=== PATIENT | male | born 1955 | race Caucasian/White ===

== ENCOUNTER 2019-08-04 07:55 | Outpatient (CLI) | payer MEDICARE, SELFPAY ==
[2019-08-04 13:10] LABS: Basophils Percent Auto 0.3 % (0.2-1.2); Eosinophils Absolute Auto 0.3 K/mm3 (0-0.3); Eosinophils Percent Auto 4.1 % (0-4.4); Hematocrit 45.2 % (42.0-52.0); Hemoglobin 14.2 g/dL (14.0-18.0); Immature Granulocyte Absolute 0.03 K/mm3 (0.00-0.031); Immature Granulocyte Percent A 0.4 % (0-0.5); Lymphocytes Absolute Auto 1.56 K/mm3 (0.9-3.2); Lymphocytes Percent Auto 21.1 % (18.3-44.2); Mean Corpuscular HGB Conc 31.4 g/dl (32-36); Mean Corpuscular Hemoglobin 27.7 pg (26-34); Mean Corpuscular Volume 88.3 fl (80-100); Mean Platelet Volume 12.2 fl (7.4-10.4); Monocytes Absolute Auto 0.7 K/mm3 (0.1-0.6); Monocytes Percent Auto 9.9 % (2.6-8.5); Neutrophils Absolute Auto 4.8 K/mm3 (1.3-6.7); Neutrophils Percent Auto 64.2 % (45.5-73.1); Platelet Count Result 203 k/mm3 (150-375); Red Blood Count 5.12 M/mm3 (4.6-6.20); Red Cell Distribution Width 14.9 % (11.5-14.5); White Blood Count 7.4 K/mm3 (4.5-10.0)
[2019-08-04 13:16] LABS: Alanine Aminotransferase 18 U/L (4-50); Albumin Level 4.8 g/dL (3.5-5.1); Alkaline Phosphatase 106 U/L (38-126); Aspartate Amino Transferase 20 U/L (17-59); Bilirubin,Total 0.7 mg/dL (0.2-1.3); Blood Urea Nitrogen 26 mg/dL (9-20); Calcium 10.1 mg/dL (8.4-10.2); Carbon Dioxide 23 mmol/L (22-30); Chloride 96 mmol/L (98-107); Cholesterol 149 mg/dL (0-200); Estimated Glomerular Filt Rate > 60; Glucose 116 mg/dL (75-110); HDL Direct 42 mg/dL; Potassium 4.2 mmol/L (3.4-5.0); Sodium 137 mmol/L (137-145); Triglycerides 222 mg/dL (<150); Uric Acid 3.7 mg/dL (3.5-8.5)
[2019-08-04 13:27] LABS: LDL Cholesterol Direct 82 mg/dL
[2019-08-04 13:31] LABS: Free T4 Free Thyroxine 1.08 ng/mL (0.78-2.19); Vitamin D 25 Hydroxy 45.1 ng/mL
[2019-08-04 13:33] LABS: Creatinine Urine 126.3 mg/dL
[2019-08-04 13:37] LABS: MALB Creatinine Ratio 7.4 mg/g (0-30); Microalbumin Urine Random 9.4 mg/L (0-16.7)
[2019-08-04 13:45] LABS: Total Triiodothyronine (T3) 1.39 NG/ML (0.97-1.69)
== END 2019-08-04 07:56 | disposition home or self-care (01) ==
LOC: ANHWCLAB 08:01
PROVIDERS: PCP Family Medicine; Visit Provider Family Medicine
DX: Z13.220 Encounter for screening for lipoid disorders (principal); Z13.29 Encounter for screening for other suspected endocrine disorder; Z13.0 Encounter for screening for diseases of the blood and blood-forming organs and certain disorders involving the immune mechanism; Z13.6 Encounter for screening for cardiovascular disorders; Z12.5 Encounter for screening for malignant neoplasm of prostate; I12.9 Hypertensive chronic kidney disease with stage 1 through stage 4 chronic kidney disease, or unspecified chronic kidney disease; N18.3 Chronic kidney disease, stage 3 (moderate); E55.9 Vitamin D deficiency, unspecified; I48.0 Paroxysmal atrial fibrillation; D50.9 Iron deficiency anemia, unspecified; R80.9 Proteinuria, unspecified
CPT/HCPCS: 36415; 80053; 80061; 82043; 82306; 84153; 84439; 84443; 84480; 84550; 85025; G0103

== ENCOUNTER 2020-01-04 08:59 | Outpatient (CLI) | payer MEDICARE, SELFPAY ==
[2020-01-04 09:32] LABS: Hemoglobin A1C 6.5 % (<5.7)
[2020-01-04 12:49] LABS: Folic Acid 13.9 ng/mL (2.76->20)
== END 2020-01-04 09:00 | disposition home or self-care (01) ==
PROVIDERS: PCP Family Medicine; Visit Provider Nurse Practitioner
DX: R20.2 Paresthesia of skin (principal); R73.01 Impaired fasting glucose; D51.3 Other dietary vitamin B12 deficiency anemia
CPT/HCPCS: 36415; 82607; 82746; 83036

== ENCOUNTER 2020-06-18 08:57 | Outpatient (CLI) | payer MEDICARE, SELFPAY ==
[2020-06-24 11:56] LABS: Testosterone Free 58.7 pg/mL (35.0-155.0); Testosterone Total 438 ng/dL (250-1100)
== END 2020-06-18 08:58 | disposition home or self-care (01) ==
PROVIDERS: PCP Family Medicine; Visit Provider Nurse Practitioner
DX: N52.9 Male erectile dysfunction, unspecified (principal)
CPT/HCPCS: 36415; 84402; 84403

== ENCOUNTER 2020-10-15 09:28 | Outpatient (CLI) | payer MEDICARE, SELFPAY | END 2020-10-15 09:29 | disposition home or self-care (01) | LOC: ANHAUDIO 09:29 | PROVIDERS: PCP Family Medicine; Visit Provider Family Medicine | DX: H90.3 Sensorineural hearing loss, bilateral (principal) | CPT/HCPCS: 92557; 92567 ==

== ENCOUNTER 2020-10-18 06:44 | Outpatient (CLI) | payer MEDICARE, SELFPAY ==
[2020-10-18 07:29] LABS: Basophils Percent Auto 0.3 % (0.2-1.2); Eosinophils Absolute Auto 0.1 K/mm3 (0-0.3); Eosinophils Percent Auto 1.3 % (0-4.4); Hematocrit 45.8 % (42.0-52.0); Hemoglobin 15.1 g/dL (14.0-18.0); Immature Granulocyte Absolute 0.03 K/mm3 (0.00-0.031); Immature Granulocyte Percent A 0.5 % (0-0.5); Immature Reticulocyte Fraction 16.2 % (3.0-15.9); Lymphocytes Absolute Auto 1.29 K/mm3 (0.9-3.2); Lymphocytes Percent Auto 20.8 % (18.3-44.2); Mean Corpuscular Hemoglobin 28.7 pg (26-34); Mean Corpuscular Volume 86.9 fl (80-100); Mean Platelet Volume 10.8 fl (7.4-10.4); Monocytes Percent Auto 16.1 % (2.6-8.5); Neutrophils Absolute Auto 3.8 K/mm3 (1.3-6.7); Platelet Count Result 187 k/mm3 (150-375); Red Blood Count 5.27 M/mm3 (4.6-6.20); Red Cell Distribution Width 14.2 % (11.5-14.5); Reticulocyte Hemoglobin Conten 34.4 pg (28.2-35.7); Reticulocyte Percent 1.84 % (0.7-4.3); White Blood Count 6.2 K/mm3 (4.5-10.0)
[2020-10-18 07:41] LABS: Alanine Aminotransferase 20 U/L (4-50); Albumin Level 4.6 g/dL (3.5-5.1); Alkaline Phosphatase 85 U/L (38-126); Anion Gap 9 mmol/L (8-16); Aspartate Amino Transferase 23 U/L (17-59); Bilirubin,Total 0.7 mg/dL (0.2-1.3); Blood Urea Nitrogen 26 mg/dL (9-20); Calcium 9.6 mg/dL (8.4-10.2); Carbon Dioxide 27 mmol/L (22-30); Chloride 99 mmol/L (98-107); Cholesterol 133 mg/dL (0-200); Estimated Glomerular Filt Rate > 60; Glucose 125 mg/dL (75-110); HDL Direct 41 mg/dL; Potassium 4.3 mmol/L (3.4-5.0); Sodium 135 mmol/L (137-145); Triglycerides 146 mg/dL (<150); Uric Acid 3.5 mg/dL (3.5-8.5)
[2020-10-18 07:52] LABS: LDL Cholesterol Direct 69 mg/dL; Transferrin 243 mg/dL (206-381)
[2020-10-18 08:12] LABS: Prostate Specific Antigen 2.7 ng/mL (< OR = 4.0); Total Triiodothyronine (T3) 1.12 NG/ML (0.97-1.69)
[2020-10-18 08:28] LABS: Creatinine Urine 130.9 mg/dL
[2020-10-18 08:32] LABS: MALB Creatinine Ratio 20.5 mg/g (0-30); Microalbumin Urine Random 26.8 mg/L (0-16.7)
[2020-10-18 08:46] LABS: Folic Acid 11.8 ng/mL (2.76->20)
[2020-10-18 09:11] LABS: Vitamin D 25 Hydroxy 48.7 ng/mL
[2020-10-18 09:57] LABS: Lactate Dehydrogenase < 200 U/L (313-618)
[2020-10-18 10:39] LABS: Iron 71 ug/dL (49-181)
[2020-10-18 10:41] LABS: Percent Iron Saturation 22 % (20-50)
== END 2020-10-18 06:45 | disposition home or self-care (01) ==
PROVIDERS: PCP Family Medicine; Visit Provider Nurse Practitioner Family
DX: E11.40 Type 2 diabetes mellitus with diabetic neuropathy, unspecified (principal); D51.3 Other dietary vitamin B12 deficiency anemia; E78.2 Mixed hyperlipidemia; E55.9 Vitamin D deficiency, unspecified; M10.09 Idiopathic gout, multiple sites; I12.9 Hypertensive chronic kidney disease with stage 1 through stage 4 chronic kidney disease, or unspecified chronic kidney disease; D50.9 Iron deficiency anemia, unspecified; N18.30 Chronic kidney disease, stage 3 unspecified; Z12.5 Encounter for screening for malignant neoplasm of prostate
CPT/HCPCS: 36415; 80053; 80061; 82043; 82306; 82607; 82728; 82746; 83540; 83550; 83615; 84153; 84439; 84443; 84466; 84480; 84550; 85025; 85046; G0103

== ENCOUNTER 2021-05-22 07:19 | Outpatient (CLI) | payer MEDICARE, SELFPAY ==
[2021-05-22 07:50] LABS: Basophils Percent Auto 0.3 % (0.2-1.2); Eosinophils Absolute Auto 0.1 K/mm3 (0-0.3); Eosinophils Percent Auto 2.3 % (0-4.4); Hematocrit 43.1 % (42.0-52.0); Hemoglobin 14.3 g/dL (14.0-18.0); Immature Granulocyte Absolute 0.04 K/mm3 (0.00-0.031); Immature Granulocyte Percent A 0.7 % (0-0.5); Lymphocytes Absolute Auto 1.46 K/mm3 (0.9-3.2); Lymphocytes Percent Auto 23.9 % (18.3-44.2); Mean Corpuscular HGB Conc 33.2 g/dl (32-36); Mean Corpuscular Hemoglobin 29.3 pg (26-34); Mean Corpuscular Volume 88.3 fl (80-100); Mean Platelet Volume 10.8 fl (7.4-10.4); Monocytes Absolute Auto 0.8 K/mm3 (0.1-0.6); Neutrophils Absolute Auto 3.7 K/mm3 (1.3-6.7); Neutrophils Percent Auto 59.8 % (45.5-73.1); Platelet Count Result 198 k/mm3 (150-375); Red Blood Count 4.88 M/mm3 (4.6-6.20); Red Cell Distribution Width 13.6 % (11.5-14.5); White Blood Count 6.1 K/mm3 (4.5-10.0)
[2021-05-22 08:02] LABS: Alanine Aminotransferase 17 U/L (4-50); Albumin Level 4.7 g/dL (3.5-5.1); Alkaline Phosphatase 74 U/L (38-126); Anion Gap 11 mmol/L (8-16); Aspartate Amino Transferase 23 U/L (17-59); Bilirubin,Total 0.8 mg/dL (0.2-1.3); Blood Urea Nitrogen 27 mg/dL (9-20); Calcium 9.8 mg/dL (8.4-10.2); Carbon Dioxide 25 mmol/L (22-30); Chloride 95 mmol/L (98-107); Cholesterol 143 mg/dL (0-200); Estimated Glomerular Filt Rate > 60; Glucose 128 mg/dL (65-110); HDL Direct 40 mg/dL; Potassium 3.9 mmol/L (3.4-5.0); Sodium 131 mmol/L (137-145); Triglycerides 134 mg/dL (<150); Uric Acid 3.2 mg/dL (3.5-8.5)
[2021-05-22 08:13] LABS: LDL Cholesterol Direct 73 mg/dL
[2021-05-22 08:26] LABS: Free T4 Free Thyroxine 1.07 ng/mL (0.78-2.19); Vitamin D 25 Hydroxy 55.1 ng/mL
[2021-05-22 08:33] LABS: Total Triiodothyronine (T3) 1.32 NG/ML (0.97-1.69)
[2021-05-22 08:52] LABS: Creatinine Urine 190.8 mg/dL
[2021-05-22 08:58] LABS: MALB Creatinine Ratio 12.1 mg/g (0-30)
== END 2021-05-22 07:20 | disposition home or self-care (01) ==
PROVIDERS: PCP Family Medicine; Visit Provider Nurse Practitioner Family
DX: E55.9 Vitamin D deficiency, unspecified (principal); R80.9 Proteinuria, unspecified; Z13.29 Encounter for screening for other suspected endocrine disorder; Z13.220 Encounter for screening for lipoid disorders; Z13.6 Encounter for screening for cardiovascular disorders; Z13.0 Encounter for screening for diseases of the blood and blood-forming organs and certain disorders involving the immune mechanism; I12.9 Hypertensive chronic kidney disease with stage 1 through stage 4 chronic kidney disease, or unspecified chronic kidney disease; N18.9 Chronic kidney disease, unspecified
CPT/HCPCS: 36415; 80053; 80061; 82043; 82306; 84439; 84443; 84480; 84550; 85025

== ENCOUNTER 2023-02-25 08:12 | Outpatient (CLI) | payer MEDICARE, SELFPAY ==
[2023-02-25 09:05] LABS: Basophils Percent Auto 0.2 % (0.2-1.2); Eosinophils Absolute Auto 0.1 K/mm3 (0-0.3); Hematocrit 43.3 % (42.0-52.0); Hemoglobin 13.9 g/dL (14.0-18.0); Immature Granulocyte Absolute 0.03 K/mm3 (0.00-0.031); Immature Granulocyte Percent A 0.5 % (0-0.5); Lymphocytes Absolute Auto 1.42 K/mm3 (0.9-3.2); Lymphocytes Percent Auto 23.2 % (18.3-44.2); Mean Corpuscular HGB Conc 32.1 g/dl (32-36); Mean Corpuscular Volume 87.1 fl (80-100); Mean Platelet Volume 12.2 fl (7.4-10.4); Monocytes Absolute Auto 0.6 K/mm3 (0.1-0.6); Monocytes Percent Auto 9.6 % (2.6-8.5); Neutrophils Percent Auto 64.5 % (45.5-73.1); Platelet Count Result 172 k/mm3 (150-375); Red Blood Count 4.97 M/mm3 (4.6-6.20); Red Cell Distribution Width 13.7 % (11.5-14.5); White Blood Count 6.1 K/mm3 (4.5-10.0)
[2023-02-25 09:28] LABS: LDL Cholesterol Direct 76 mg/dL
[2023-02-25 09:33] LABS: Alanine Aminotransferase 30 U/L (6-50); Albumin Level 4.4 g/dL (3.5-5.1); Alkaline Phosphatase 68 U/L (38-126); Anion Gap 9 mmol/L (8-16); Aspartate Amino Transferase 26 U/L (17-59); Blood Urea Nitrogen 19 mg/dL (9-20); Calcium 9.2 mg/dL (8.4-10.2); Carbon Dioxide 28 mmol/L (22-30); Chloride 95 mmol/L (98-107); Cholesterol 136 mg/dL (0-200); Estimated Glomerular Filt Rate > 60; Glucose 119 mg/dL (65-110); HDL Direct 36 mg/dL; Sodium 132 mmol/L (137-145); Triglycerides 104 mg/dL (<150)
[2023-02-25 09:48] LABS: Prostate Specific Antigen 3.1 ng/mL (< OR = 4.0); Total Triiodothyronine (T3) 1.21 NG/ML (0.97-1.69)
[2023-02-25 09:59] LABS: Free T4 Free Thyroxine 1.18 ng/mL (0.78-2.19)
[2023-02-25 10:01] LABS: MALB Creatinine Ratio < 9.5 mg/g (0-30); Microalbumin Urine Random < 6.0 mg/L (0-16.7)
[2023-02-25 10:09] LABS: Hemoglobin A1C 5.9 % (<5.7)
[2023-02-28 16:48] LABS: Testosterone Free 47.7 pg/mL (35.0-155.0); Testosterone Total 302 ng/dL (250-1100)
== END 2023-02-25 08:13 | disposition home or self-care (01) ==
PROVIDERS: PCP Family Medicine; Visit Provider Nurse Practitioner Adult Health
DX: E78.5 Hyperlipidemia, unspecified (principal); I10 Essential (primary) hypertension; R73.01 Impaired fasting glucose; R53.1 Weakness; R53.83 Other fatigue; Z12.5 Encounter for screening for malignant neoplasm of prostate
CPT/HCPCS: 36415; 80053; 80061; 82043; 83036; 84153; 84402; 84403; 84439; 84443; 84480; 85025; G0103

== ENCOUNTER 2023-03-06 10:38 | Outpatient (CLI) | payer MEDICARE, SELFPAY | END 2023-03-06 10:39 | disposition home or self-care (01) | PROVIDERS: PCP Family Medicine; Visit Provider Nurse Practitioner Adult Health | DX: Z12.5 Encounter for screening for malignant neoplasm of prostate (principal) | CPT/HCPCS: 36415; 84153; G0103 ==

== ENCOUNTER 2023-06-18 08:22 | Outpatient (CLI) | payer MEDICARE, SELFPAY | END 2023-06-18 08:23 | disposition home or self-care (01) | LOC: ANHAUDIO 08:22 | PROVIDERS: PCP Family Medicine; Visit Provider Otolaryngology | DX: H66.90 Otitis media, unspecified, unspecified ear (principal); H90.2 Conductive hearing loss, unspecified; H92.09 Otalgia, unspecified ear; H90.3 Sensorineural hearing loss, bilateral | CPT/HCPCS: 92557; 92567 ==

== ENCOUNTER 2023-08-17 07:41 | Outpatient (CLI) | payer MEDICARE, SELFPAY ==
[2023-08-17 08:26] LABS: Basophils Percent Auto 0.3 % (0.2-1.2); Eosinophils Absolute Auto 0.1 K/mm3 (0-0.3); Hematocrit 44.8 % (42.0-52.0); Hemoglobin 14.3 g/dL (14.0-18.0); Immature Granulocyte Absolute 0.06 K/mm3 (0.00-0.031); Immature Granulocyte Percent A 0.9 % (0-0.5); Lymphocytes Absolute Auto 1.37 K/mm3 (0.9-3.2); Lymphocytes Percent Auto 20.5 % (18.3-44.2); Mean Corpuscular HGB Conc 31.9 g/dl (32-36); Mean Corpuscular Hemoglobin 28.1 pg (26-34); Mean Corpuscular Volume 88.2 fl (80-100); Mean Platelet Volume 11.6 fl (7.4-10.4); Monocytes Absolute Auto 0.7 K/mm3 (0.1-0.6); Monocytes Percent Auto 10.3 % (2.6-8.5); Neutrophils Absolute Auto 4.5 K/mm3 (1.3-6.7); Platelet Count Result 204 k/mm3 (150-375); Red Blood Count 5.08 M/mm3 (4.6-6.20); Red Cell Distribution Width 14.4 % (11.5-14.5); White Blood Count 6.7 K/mm3 (4.5-10.0)
[2023-08-17 08:36] LABS: Alanine Aminotransferase 18 U/L (6-50); Alkaline Phosphatase 64 U/L (38-126); Anion Gap 3 mmol/L (8-16); Aspartate Amino Transferase 22 U/L (17-59); Bilirubin,Total 1.2 mg/dL (0.2-1.3); Blood Urea Nitrogen 16 mg/dL (9-20); Calcium 9.2 mg/dL (8.4-10.2); Carbon Dioxide 33 mmol/L (22-30); Chloride 99 mmol/L (98-107); Cholesterol 157 mg/dL (0-200); Estimated Glomerular Filt Rate > 60; Glucose 119 mg/dL (65-110); HDL Direct 39 mg/dL; Potassium 3.9 mmol/L (3.4-5.0); Sodium 135 mmol/L (137-145); Triglycerides 221 mg/dL (<150); Uric Acid 3.8 mg/dL (3.5-8.5)
[2023-08-17 08:46] LABS: LDL Cholesterol Direct 82 mg/dL
[2023-08-17 08:57] LABS: Hemoglobin A1C 6.2 % (<5.7)
== END 2023-08-17 07:42 | disposition home or self-care (01) ==
PROVIDERS: PCP Family Medicine
DX: E78.5 Hyperlipidemia, unspecified (principal); D64.9 Anemia, unspecified; M10.9 Gout, unspecified; I10 Essential (primary) hypertension; R73.01 Impaired fasting glucose
CPT/HCPCS: 36415; 80053; 80061; 83036; 84550; 85025

== ENCOUNTER 2023-11-13 09:33 | Outpatient (CLI) | payer MEDICARE, SELFPAY ==
[2023-11-13 10:23] LABS: Alanine Aminotransferase 19 U/L (6-50); Albumin Level 4.4 g/dL (3.5-5.1); Alkaline Phosphatase 66 U/L (38-126); Anion Gap 6 mmol/L (4-12); Aspartate Amino Transferase 18 U/L (17-59); Bilirubin,Total 0.7 mg/dL (0.2-1.3); Blood Urea Nitrogen 22 mg/dL (9-20); Calcium 9.6 mg/dL (8.4-10.2); Carbon Dioxide 29 mmol/L (22-30); Chloride 101 mmol/L (98-107); Estimated Glomerular Filt Rate > 60; Glucose 111 mg/dL (65-110); Sodium 136 mmol/L (137-145)
[2023-11-13 10:25] LABS: Hemoglobin A1C 5.7 % (<5.7)
== END 2023-11-13 09:34 | disposition home or self-care (01) ==
LOC: ANHLAB 09:37
PROVIDERS: PCP Family Medicine; Visit Provider Registered Nurse
DX: E11.9 Type 2 diabetes mellitus without complications (principal); I10 Essential (primary) hypertension
CPT/HCPCS: 36415; 80053; 83036

== ENCOUNTER 2024-02-02 12:30 | Outpatient (RCR) | payer MEDICARE, SELFPAY ==
--- NOTE | 2024-01-06 10:51 | OPREHPOC ---
Outpatient Therapy Plan of Care This is a Multidisciplinary Plan of Care that may contain components documented by all disciplines (PT, OT, and ST.) PT Problem 1 PT Problem #1 Knowledge Deficit PT Goal 1 Goal *indep with HEP Target Visit 6 PT Problem 2 PT Problem #2 Pain PT Goal 1 Goal pain rating at worst for shoulder 1* R 6/10 2* L 6/10 3* self assessment functional score with Quick DASH of 30% limitation Target Visit 6 PT Problem 3 PT Problem #3 Impaired Strength PT Goal 1 Goal increase strength of shoulders, to improve ability to do home and self care activity--reach into cabinet, work on motorcycles: in sitting, 5 reps with hand wt: 1* R shoulder flexion to 90', 3# 2* R shoulder abduction to 90', 3# 3* L shoulder flexion to 90', 3# 4* L shoulder abduction to 90' , 3# 5* pt maintain good shoulder position with exercises Target Visit 6
--- NOTE | 2024-01-06 10:51 | PTOPEVAL1 ---
Assessment and note entered by Jyotsna Ramon PT Evaluation Information Assessment Status Evaluation Diagnosis R and L shoulder pain ICD-10 Condition Codes (PT) M25.512 Other ICD-10 Condition Codes ( pain R shoulder M25.511 PT) Onset about 1 year ago Subjective Information chronic pain for years with both shoulders, finally got worse and talked with about it; multiple injuries, falls over the years to both shoulders; sleep with bilateral wrist splints on due to numbness and wake up with pain-- splints help and sleep OK; no tests or imaging to shoulders; No PT in the past for shoulders R hand dominant; Activity: retired, 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 Self assessment with Quick DASH of 41% limitation in activity. He is R hand dominant and has a history of chronic pain and multiple injuries to both shoulders. 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 With the evaluation: both shoulders have slightly decreased ROM, with painful motions and weakness with all ranges; poor shoulder position with popping and crepitus. Skilled PT services are indicated for modalities to decrease pain, therapeutic exercises to increase strength with education for HEP and posture. Monitor pain with progression of
--- NOTE | 2024-01-25 09:03 | OPREHPOC ---
Outpatient Therapy Plan of Care This is a Multidisciplinary Plan of Care that may contain components documented by all disciplines (PT, OT, and ST.) PT Problem 1 PT Problem #1 Knowledge Deficit PT Goal 1 Goal *indep with HEP Target Visit 6 Progress Met PT Problem 2 PT Problem #2 Pain PT Goal 1 Goal pain rating at worst for shoulder 1* R 6/10 2* L 6/10 3* self assessment functional score with Quick DASH of 30% limitation Target Visit 6 Progress Not Met Comment Pain continues to limit progress. PT Problem 3 PT Problem #3 Impaired Strength PT Goal 1 Goal increase strength of shoulders, to improve ability to do home and self care activity--reach into cabinet, work on motorcycles: in sitting, 5 reps with hand wt: 1* R shoulder flexion to 90', 3# 2* R shoulder abduction to 90', 3# 3* L shoulder flexion to 90', 3# 4* L shoulder abduction to 90' , 3# 5* pt maintain good shoulder position with exercises Target Visit 6 Progress Not Met Comment Inability to lift weight over shoulder limit present. Unable without weight as well.
--- NOTE | 2024-01-25 09:03 | PTOPPROG ---
Assessment and note entered by Jcaob Pandya, PT Evaluation Information Assessment Status Progress Diagnosis R and L shoulder pain ICD-10 Condition Codes (PT) M25.512 Other ICD-10 Condition Codes ( pain R shoulder PT) Onset about 1 year ago Subjective Information Reports that therapy was initially helping, but last session was really sore following. Currently feels the same as when he initially started therapy. Pain still limiting motion and self care. Left am does not feel it is improving at all and may be worse. He follows up with MD on 02/12/24. He is awaiting an MRI as he does not feel he has made any significant progress and still has severe difficulty lifting his arms. Having severe difficulty lifting things away from his body. Assessment PT Clinical Summary Patient at this point in therapy has not seen significant progress and to some degree some regression in active motion. Very minimal active motion noted in seated position against gravity with inability to lift affected arm to 90 degrees. Patient demonstrates signs and symptoms consistent with structural rotator cuff damage and I feel it would be most appropriate to move forward with further imaging at this time to assess extent of rotator cuff damage. Patient does not have sufficient functional strength in shoulder at this time. We will continue to work toward improvement but prognosis in likely poor at this time. Plan of Care Interventions Electrical Stimulation,Hot Pack/Cold Pack,Manual Therapy,Patient/Caregiver Educati,Therapeutic Activities,Therapeutic Exercise,Ultrasound,Other Other Interventions phillying, NHUNG PT Services Indicated Yes Treatment Frequency and 1x/week for 4 visits Duration These treatments will address the objective and functional deficits as defined above. The patient will be advanced safely and appropriately in order for the patient to progress towards his/her prior level of function. Additional exercises will be introduced and as well as a comprehensive home exercise program upon discharge, if needed, ?to ensure carryover of functional gains achieved in the clinic. This treatment plan has been reviewed and agreement upon by the patient.
== END 2024-03-28 10:01 | disposition home or self-care (01) ==
LOC: ANHPT 12:30
PROVIDERS: PCP Family Medicine; Visit Provider Registered Nurse
DX: M25.612 Stiffness of left shoulder, not elsewhere classified (principal)
CPT/HCPCS: 97014; 97110; 97140; 97161; 97530; G0283

== ENCOUNTER 2024-02-12 07:25 | Outpatient (CLI) | payer MEDICARE, SELFPAY ==
--- NOTE | ~2024-02-12 | MR_ITS ---
EXAMINATION: MR shoulder RT wo con DATE: 02/12/2024 08:25 INDICATION: Right shoulder pain. TECHNIQUE: Magnetic resonance imaging (MRI) of the right shoulder was performed without intravenous c ontrast. COMPARISON: None. FINDINGS: Coracoacromial arch: The acromion undersurface is curved in morphology (type II). There is severe acromioclavicular joint osteoarthritis including inferior directed osteophytes. There is moderate subacromial/subdeltoid burs itis. Rotator cuff: There is a full-thickness tear of supraspinatus and infraspinatus tendons measuring 5.2 cm anterior t o posterior by greater than 5 cm proximal to distal. Teres minor tendon is normal. There is an articu lar-sided partial tear of subscapularis tendon. There is volume loss and mild fatty atrophy of supras pinatus muscle belly. There is volume loss and moderate fatty atrophy of infraspinatus and subscapula ris muscle bellies. Biceps tendon and glenoid labrum: Biceps tendon is in bicipital groove. There is a partial tear of intra-articular biceps tendon. There is degenerative tearing of the glenoid labrum. Fluid: There is a small glenohumeral joint effusion. Bones/cartilage: There is cartilage surface irregularity of glenoid and humeral head. IMPRESSION: 1. Massive full-thickness rotator cuff tear. 2. Mild glenohumeral joint chondrosis. 3. Severe acromioclavicular joint osteoarthritis. 4. Partial tear of biceps tendon. 5. Small glenohumeral joint effusion and moderate subacromial/subdeltoid bursitis. Reviewed, dictated and finalized at location A. IMPRESSION: 1. Massive full-thickness rotator cuff tear. 2. Mild glenohumeral joint chondrosis. 3. Severe acromioclavicular joint osteoarthritis. 4. Partial tear of biceps tendon. 5. Small glenohumeral joint effusion and moderate subacromial/subdeltoid bursit is.
--- NOTE | ~2024-02-12 | MR_ITS ---
EXAMINATION: MR shoulder LT wo con DATE: 02/12/2024 08:31 INDICATION: Chronic left shoulder pain. TECHNIQUE: Magnetic resonance imaging (MRI) of the left shoulder was performed without intravenous co ntrast. Sequences included axial PD-weighted FS FSE, coronal oblique PD-weighted FS FSE and T2-weight ed FS FSE, and sagittal oblique T2-weighted FS FSE and T1-weighted FSE. COMPARISON: None. FINDINGS: Coracoacromial arch: The acromion undersurface is curved in morphology (type II). There is severe acromioclavicular joint osteoarthritis including inferiorly directed osteophytes. There is mild subacromial/subdeltoid bursit is. Rotator cuff: There is a full-thickness tear of supraspinatus and infraspinatus tendons measuring 5.0 cm anterior t o posterior by greater than 5 cm proximal to distal. There is mild teres minor tendinopathy. There is edema at the myotendinous junction of teres minor, consistent with mild strain. There is an articula r-sided partial tear of subscapularis tendon. There is volume loss and mild fatty atrophy of supraspi natus muscle belly. There is volume loss and moderate facet atrophy of infraspinatus and subscapulari s muscle bellies. Biceps tendon and glenoid labrum: Biceps tendon is in bicipital groove. There is a partial tear of intra-articular biceps tendon. There is degenerative tearing of the glenoid labrum. Fluid: There is a small glenohumeral joint effusion. Bones/cartilage: There is cartilage surface irregularity of glenoid and humeral head. IMPRESSION: 1. Massive full-thickness rotator cuff tear. Mild teres minor muscle strain. 2. Mild glenohumeral joint chondrosis. 3. Severe acromioclavicular joint osteoarthritis. 4. Partial tear of biceps tendon. 5. Small glenohumeral joint effusion and mild subacromial/subdeltoid bursitis. Reviewed, dictated and finalized at location A.
== END 2024-02-12 07:26 ==
PROVIDERS: PCP Family Medicine; Visit Provider Registered Nurse
DX: M75.122 Complete rotator cuff tear or rupture of left shoulder, not specified as traumatic (principal); M75.121 Complete rotator cuff tear or rupture of right shoulder, not specified as traumatic; M94.212 Chondromalacia, left shoulder; M94.211 Chondromalacia, right shoulder; M19.012 Primary osteoarthritis, left shoulder; M19.011 Primary osteoarthritis, right shoulder; S46.212A Strain of muscle, fascia and tendon of other parts of biceps, left arm, initial encounter; S46.211A Strain of muscle, fascia and tendon of other parts of biceps, right arm, initial encounter; M25.412 Effusion, left shoulder; M25.411 Effusion, right shoulder; M75.52 Bursitis of left shoulder; M75.51 Bursitis of right shoulder; G89.29 Other chronic pain; X58.XXXA Exposure to other specified factors, initial encounter
CPT/HCPCS: 73221

== ENCOUNTER 2024-09-14 08:53 | Outpatient (CLI) | payer MEDICARE, SELFPAY ==
[2024-09-14 10:03] LABS: Basophils Percent Auto 0.3 % (0.2-1.2); Eosinophils Absolute Auto 0.2 K/mm3 (0-0.3); Eosinophils Percent Auto 2.8 % (0-4.4); Hematocrit 45.9 % (42.0-52.0); Hemoglobin 14.6 g/dL (14.0-18.0); Immature Granulocyte Absolute 0.05 K/mm3 (0.00-0.031); Immature Granulocyte Percent A 0.7 % (0-0.5); Lymphocytes Absolute Auto 1.52 K/mm3 (0.9-3.2); Lymphocytes Percent Auto 21.3 % (18.3-44.2); Mean Corpuscular HGB Conc 31.8 g/dl (32-36); Mean Corpuscular Hemoglobin 27.4 pg (26-34); Mean Corpuscular Volume 86.3 fl (80-100); Mean Platelet Volume 12.2 fl (7.4-10.4); Monocytes Absolute Auto 0.7 K/mm3 (0.1-0.6); Monocytes Percent Auto 10.1 % (2.6-8.5); Neutrophils Absolute Auto 4.6 K/mm3 (1.3-6.7); Neutrophils Percent Auto 64.8 % (45.5-73.1); Platelet Count Result 152 k/mm3 (150-375); Red Blood Count 5.32 M/mm3 (4.6-6.20); Red Cell Distribution Width 14.2 % (11.5-14.5); White Blood Count 7.1 K/mm3 (4.5-10.0)
[2024-09-14 10:15] LABS: Alanine Aminotransferase 23 U/L (6-50); Albumin Level 4.4 g/dL (3.5-5.1); Alkaline Phosphatase 80 U/L (38-126); Anion Gap 10 mmol/L (4-12); Aspartate Amino Transferase 21 U/L (17-59); Bilirubin,Total 1.2 mg/dL (0.2-1.3); Blood Urea Nitrogen 30 mg/dL (9-20); Carbon Dioxide 30 mmol/L (22-30); Chloride 98 mmol/L (98-107); Cholesterol 137 mg/dL (0-200); Estimated Glomerular Filt Rate 36; Glucose 111 mg/dL (65-110); HDL Direct 31 mg/dL; Potassium 3.7 mmol/L (3.4-5.0); Sodium 138 mmol/L (137-145); Triglycerides 148 mg/dL (<150)
[2024-09-14 10:19] LABS: Hemoglobin A1C 5.9 % (<5.7)
[2024-09-14 10:27] LABS: LDL Cholesterol Direct 72 mg/dL
[2024-09-14 10:42] LABS: Prostate Specific Antigen 5.2 ng/mL (< OR = 4.0)
[2024-09-14 11:13] LABS: Hepatitis C Virus Antibody Negative (Negative)
== END 2024-09-14 08:54 | disposition home or self-care (01) ==
LOC: ANHLAB 08:55
PROVIDERS: PCP Family Medicine; Visit Provider Registered Nurse
DX: K21.9 Gastro-esophageal reflux disease without esophagitis (principal); E08.21 Diabetes mellitus due to underlying condition with diabetic nephropathy; E78.5 Hyperlipidemia, unspecified; I10 Essential (primary) hypertension; Z12.5 Encounter for screening for malignant neoplasm of prostate; Z11.59 Encounter for screening for other viral diseases
CPT/HCPCS: 36415; 80053; 80061; 83036; 84153; 85025; 86803; G0103